=== PATIENT | male | born 1970 | race Caucasian/White ===

== ENCOUNTER 2023-05-22 07:09 | Emergency (ER) | payer OTHER ==
[~2023-05-22] VITALS: Ht 177.8 cm; Wt 102.1 kg
[2023-05-22 07:10] VITALS: BP_SYST 182; PULSE 94; RESP 18; TEMP 98; O2SAT 99
[2023-05-22] MEDS ORDERED: PEG15DRO12 EACH EYE (07:44)
[2023-05-22] MEDS ORDERED: PRED20TA PO (07:44)
[2023-05-22] MEDS ORDERED: VALA10002 PO (07:44)
[2023-05-22] MEDS ORDERED: PETR3.5O OP (07:44)
[2023-05-22 08:15] VITALS: BP_SYST 137; PULSE 75; RESP 18; TEMP 98.1; O2SAT 96
== END 2023-05-22 08:14 | disposition home or self-care (01) ==
LOC: SED 07:09
DX: G51.0 Bell's palsy (principal); R03.0 Elevated blood-pressure reading, without diagnosis of hypertension
CPT/HCPCS: 99283